=== PATIENT | female | born 1990 | race Caucasian/White ===

== ENCOUNTER 2017-11-17 17:56 | Emergency (ER) | payer BC, MEDICAID, SELFPAY ==
[2017-11-17 18:13] VITALS: BP 140/87; PULSE 102; RESP 20; TEMP 36.6; O2SAT 97; BMI 37.5
--- NOTE | 2017-11-17 18:23 | HMH.EDUTC ---
[facility] [place] Disposition Clinical Impression: Nausea & vomiting Qualifiers: Vomiting type: unspecified Vomiting Intractability: unspecified Qualified Code(s): R11.2 - Nausea with vomiting, unspecified Disposition: Home, Self-Care Condition on Discharge: Good Instructions: DI for Nausea -- Adult, DI for Vomiting -- Adult, DI for Dizziness-Nonvertigo, Vertigo Additional Instructions: Follow up with Family doctor Return if needed Follow up with Dr Clark for evaluation and exam Take previously prescribed Zofran for nausea if needed If you begin to have abdominal pain that worsens or returns go straight to ER Referrals: Hill Negrete MD [Primary Care Provider] - Kenny Clark MD [Staff Physician] - Time of Disposition: 19:22 Medical Decision Making - Medical Records Medical records reviewed: Yes: I reviewed the patient's medical records. Vital Signs: 11/17/17 18:13 Temperature 97.9 F Temperature Source Temporal Artery Scan Pulse Rate [Right Radial] 102 H Respiratory Rate 20 Blood Pressure [Right Arm] 140/87 Blood Pressure Mean [Right Arm] 104 Blood Pressure Source [Right Arm] Automatic Cuff Blood Pressure Position [Right Arm] Sitting 02 Sat by Pulse Oximetry 97 Oxygen Delivery Method Room Air - Lab Data Lab Results 11/17/17 18:11: Urine Color Yellow, Urine Appearance Clear, Urine pH 6.0, Ur Specific [place] 1.015, Urine Protein Negative, Urine Glucose (UA) 500, Urine Ketones Negative, Urine Blood Negative, Urine Nitrate Negative, Urine Bilirubin Negative, Urine Urobilinogen 0.2, Ur Leukocyte Esterase Negative, Influenza Type A Ag Negative, Influenza Type B Ag Negative Orders (Tests/Meds): ED MEDICATIONS Discontinued Medications Generic Name Dose Route Start Last Admin Trade Name Oscarq PRN Reason Stop Dose Admin Ondansetron HCl 4 mg 11/17/17 18:44 11/17/17 18:50 Zofran 4mg/2ml Vial IM 11/17/17 18:45 4 mg ONCE ONE Administration ORDERS Category Date Time Status Urine Culture Stat Micro 11/17/17 18:57 Ordered - Uri Inquiry Pt receiving controlled substance: No Uri was queried for this patient: No - Reevaluation(s) Time: 19:16 (Offered to send patient to ER for further work up and evalulation but patient refused to go state that she is feeling better and wants to go home she will come back to ER if she begins to have pain again. State that medication helped with nausea and she is not feeling dizzy either. Patient and family aware of possible risks advised that she needed to follow up with Dr Clark tomorrow if possible for further evaluation and exam) [facility] [place] HPI - General Stated complaint: Vomiting Mode of Arrival: Ambulatory Source of Information: Patient Limitations: No Limitations Description of Symptoms (Recalled from Triage Doc. by RN): PT C/O VOMITING, DIZZINESS, FALLING, WEAKNESS, STOMACH PAINS, FATIGUE, AND VAGINAL PAINS FOR 2 DAYS. HEENT Symptoms (Recalled from RN notes): Yes (DIZZINESS, WEAKNESS,FALLING) Resp Symptoms (Recalled from RN notes): No Skin Symptoms (Recalled from RN notes): No MS Symptoms (Recalled from RN notes): No Functional Status (Recalled from RN notes): NA - History of Present Illness Provider Complaint: Patient state that she has been having nausea and vomiting since earlier today States that she has also been having eppisodes of dizziness and tripped at home earlier and fell but this is not uncommon for her. State that she has been having some cramping like feeling on and off in her lower abdomen for about 2-3 months state that when it starts feels like it is in her ovaries and then she has discharge at times States that her mother wanted her brought to get her checked out - Related Data Home Medications Medication Instructions Recorded Confirmed ARIPiprazole [Abilifcristina Maintena] 400 mg PO DAILY 11/17/17 11/17/17 Allergies Allergy/AdvReac Type Severity Reaction Status Date / Time No Known Allergies Allergy Verified 11/17/17
--- NOTE | 2017-11-17 18:41 | ED_ITS ---
[facility] [place] Clinical Impression: Nausea & vomiting Qualifiers: Vomiting type: unspecified Vomiting Intractability: unspecified Qualified Code( s): R11.2 - Nausea with vomiting, unspecified Disposition: Home, Self-Care Condition on Discharge: Good Instructions: DI for Nausea -- Adult, DI for Vomiting -- Adult, DI for Dizziness-Nonvertigo, Vertigo Additional Instructions: Follow up with Family doctor Return if needed Follow up with Dr Clark for evaluation and exam Take previously prescribed Zofran for nausea if needed If you begin to have abdominal pain that worsens or returns go straight to ER Referrals: Hill Negrete MD [Primary Care Provider] - Kenny Clark MD [Staff Physician] - Time of Disposition: 19:22 Medical Decision Making - Medical Records Medical records reviewed: Yes: I reviewed the patient's medical records. Vital Signs: 11/17/17 18:13 Temperature 97.9 F Temperature Source Temporal Artery Scan Pulse Rate [Right Radial] 102 H Respiratory Rate 20 Blood Pressure [Right Arm] 140/87 Blood Pressure Mean [Right Arm] 104 Blood Pressure Source [Right Arm] Automatic Cuff Blood Pressure Position [Right Arm] Sitting 02 Sat by Pulse Oximetry 97 Oxygen Delivery Method Room Air - Lab Data Lab Results 11/17/17 18:11: Urine Color Yellow, Urine Appearance Clear, Urine pH 6.0, Ur Specific [place] 1.015, Urine Protein Negative, Urine Glucose (UA) 500, Urine Ketones Negative, Urine Blood Negative, Urine Nitrate Negative, Urine Bilirubin Negative, Urine Urobilinogen 0.2, Ur Leukocyte Esterase Negative, Influenza Type A Ag Negative, Influenza Type B Ag Negative Orders (Tests/Meds): ED MEDICATIONS Discontinued Medications Generic Name Dose Route Start Last Admin Trade Name Oscarq PRN Reason Stop Dose Admin Ondansetron HCl 4 mg 11/17/17 18:44 11/17/17 18:50 Zofran 4mg/2ml Vial IM 11/17/17 18:45 4 mg ONCE ONE Administration ORDERS Category Date Time Status Urine Culture Stat Micro 11/17/17 18:57 Ordered - Uri Inquiry Pt receiving controlled substance: No Uri was queried for this patient: No - Reevaluation(s) Time: 19:16 (Offered to send patient to ER for further work up and evalulation but patient refused to go state that she is feeling better and wants to go home she will come back to ER if she begins to have pain again. State that medication helped with nausea and she is not feeling dizzy either. Patient and family aware of possible risks advised that she needed to follow up with Dr Clark tomorrow if possible for further evaluation and exam) [facility] [place] - General Stated complaint: Vomiting Mode of Arrival: Ambulatory Source of Information: Patient Limitations: No Limitations Description of Symptoms (Recalled from Triage Doc. by RN): PT C/O VOMITING, DIZZINESS, FALLING, WEAKNESS, STOMACH PAINS, FATIGUE, AND VAGINAL PAINS FOR 2 DAYS. HEENT Symptoms (Recalled from RN notes): Yes (DIZZINESS, WEAKNESS,FALLING) Resp Symptoms (Recalled from RN notes): No Skin Symptoms (Recalled from RN notes): No MS Symptoms (Recalled from RN notes): No Functional Status (Recalled from RN notes): NA - History of Present Illness Provider Complaint: Patient state that she has been having nausea and vomiting since earlier today States that she has also been having eppisodes of dizziness and tripped at home [place]
[2017-11-17 18:45] LABS: Apearance,Urine Clear (Clear); Bilirubin,Urine Negative (Negative); Blood, Urine Negative (Negative); Color,Urine Yellow (Yellow); Glucose,Urine (UA) 500 (Negative); Ketones,Urine Negative (Negative); Protein,Urine Negative (Negative); Specific Gravity, Urine 1.015 (1.005-1.030); UTC Influenza A Antigen Negative (Negative); UTC Influenza B Antigen Negative (Negative); UTC Leukocyte Esterase,Urine Negative (Negative); UTC Nitrate,Urine Negative (Negative); Urobilinogen,Urine 0.2 EU/dl (0.2)
== END 2017-11-17 19:30 | disposition home or self-care (01) ==
PROVIDERS: Emergency Provider Nurse Practitioner; Family Provider Internal Medicine Adolescent Medicine; PCP Internal Medicine Adolescent Medicine
DX: R11.2 Nausea with vomiting, unspecified (principal); R42 Dizziness and giddiness; R10.30 Lower abdominal pain, unspecified
CPT/HCPCS: 81003; 87086; 87804; 96372; 99202; J2405

== ENCOUNTER → 2017-12-30 16:01 | Outpatient (CLI) | payer BC, MEDICAID, SELFPAY ==
[2017-12-30 16:05] LABS: Microscopic, Urine URINE MICROSCOPIC (MICROSCOPIC)
--- NOTE | 2017-12-30 16:20 | XR_ITS ---
XR KUB COMPARISON: KUB and upright abdomen 03/04/2017 HISTORY: Abdominal pain, hematuria TECHNIQUE: KUB and upright abdomen FINDINGS There is only minimal gas scattered throughout the colon. There is no significant small bowel gas. There is moderate gas within the stomach. There are no abnormal soft tissue shadows and there are no suspicious calcifications overlying the kidneys or course of the ureters. IMPRESSION: Essentially nondiagnostic abdomen
[2017-12-30 16:34] LABS: Basophils % 0.2 % (0.1-2.0); Eosinophils # 0.1 K/mm3 (0.0-0.4); Eosinophils % 0.4 % (0.1-12.0); Hematocrit 44.6 % (37.0-47.0); Hemoglobin 14.4 g/dL (12.2-16.2); Lymphocytes # 0.9 K/mm3 (0.7-4.5); Lymphocytes % 7.1 K/mm3 (10-50); Mean Corpuscular HGB Conc 32.2 g/dL (31.8-35.4); Mean Corpuscular Hemoglobin 29.8 pg (27.0-31.2); Mean Corpuscular Volume 92.3 fl (81-99); Mean Platelet Volume 8.6 fl (7.4-10.4); Monocytes # 0.6 K/mm3 (0.1-1.0); Monocytes % 4.3 % (1.7-9.3); Neutrophils # 11.8 K/mm3 (1.8-7.8); Neutrophils % 88.1 % (37.0-80.0); Platelet Count 312 K/mm3 (142-424); Red Blood Count 4.83 M/mm3 (4.20-5.40); Red Cell Distribution Width 12.6 % (11.5-17.5); White Blood Count 13.4 K/mm3 (4.8-10.8)
[2017-12-30 16:41] LABS: MANUAL DIFFERENTIAL MANUAL DIFFERENTIAL (MANUAL DIFF)
[2017-12-30 16:55] LABS: Hemoglobin A1C 9.2 % (0.0-7.0)
[2017-12-30 17:17] LABS: Alanine Aminotransferase 53 U/L (12-78); Albumin Level 3.7 gm/dL (3.4-5.0); Albumin/Globulin Ratio 0.8 (1.1-1.8); Alkaline Phosphatase 113 U/L (46-116); Anion Gap 13.7 mEq/L (5-15); Aspartate Amino Transferase 34 U/L (15-37); Bilirubin,Total 0.6 mg/dL (0.2-1.0); Blood Urea Nitrogen 11 mg/dL (7-18); Calcium 8.8 mg/dL (8.5-10.1); Carbon Dioxide 26 mmol/L (21.0-32.0); Chloride 101 mmol/L (98-107); Creatinine,Serum 0.79 mg/dL (0.55-1.02); Estimated Glomerular Filt Rate 89 ml/min (>60); GFR (African American) 107 ML/MIN (>60); Globulin 4.7 gm/dl (1.3-3.2); Glucose 254 mg/dL (74-106); Potassium 3.7 mmoL/L (3.5-5.1); Sodium 137 mmol/L (136-145); Total Protein,Serum 8.4 gm/dL (6.4-8.2)
[2017-12-30 18:05] LABS: Urine Pregnancy, HCG Qual. Negative (Negative)
[2017-12-30 18:54] LABS: Acetone, Serum (Rapid) None Detected (None Detect)
[2017-12-30 19:28] LABS: Lymphocytes % 9 % (10-50); Neutrophils % 86 % (42-76); Platelet Estimate Normal; RBC Morphology Normal; Total Cells Counted 100
[2017-12-30 19:48] LABS: Amorphous Sediment,Urine 1+ /lpf; Bacteria,Urine 3+ /lpf; Mucus,Urine 1+ /lpf
[2017-12-30 20:03] LABS: Appearance,Urine CLOUDY (Clear); Bilirubin,Urine Negative (Negative); Blood, Urine Negative (Negative); Color,Urine YELLOW (Yellow); Glucose,Urine (UA) 1+ (Negative); Ketones,Urine Negative (Negative); Leukocyte Esterase,Urine Negative (Negative); Nitrate,Urine Negative (Negative); PH,Urine 5.5 (5.0-8.5); Protein,Urine TRACE (Negative); Specific Gravity, Urine >= 1.030 (1.005-1.030); Urobilinogen,Urine 0.2 EU/dl (0.2)
== END ==
PROVIDERS: PCP Nurse Practitioner Family; Visit Provider Nurse Practitioner Family
DX: R10.84 Generalized abdominal pain (principal); R73.9 Hyperglycemia, unspecified; R11.2 Nausea with vomiting, unspecified; R31.9 Hematuria, unspecified; N92.6 Irregular menstruation, unspecified
CPT/HCPCS: 36415; 74018; 80053; 81001; 81025; 82009; 83036; 85007; 85025; 87086

== ENCOUNTER → 2018-02-02 12:31 | Outpatient (CLI) | payer BC, MEDICAID, SELFPAY ==
[2018-02-02 14:37] LABS: Free Thyroxine Index 3.2 ug/dL (5.93-13.13); Glucose 1 Hour 381 mg/dL (74-106); T4 (Thyroxine) 8.9 ug/dl (4.7-13.3); Thyroid Stimulating Hormone 1.69 uIU/ml (0.358-3.740); Triiodothryronine (T3) Uptake 36 % (31-39)
[2018-02-03 11:04] LABS: FSH 5.9 mIU/mL (.); LH 11.2 mIU/mL (.)
== END ==
PROVIDERS: Family Provider Internal Medicine Adolescent Medicine; PCP Internal Medicine Adolescent Medicine; Visit Provider Nurse Practitioner Obstetrics & Gynecology
DX: Z87.42 Personal history of other diseases of the female genital tract (principal)
CPT/HCPCS: 36415; 83001; 83002; 84436; 84443; 84479

== ENCOUNTER → 2018-02-13 15:34 | Outpatient (CLI) | payer BC, MEDICAID, SELFPAY ==
--- NOTE | 2018-02-13 15:39 | US_ITS ---
US transvaginal Ordering Physician: Kenny Clark MD Patient Age: 27 years: Female HISTORY: ITS.REASON: look at ovaries/pain abdominal pain pelvic pain discharge irregular periods TECHNIQUE: Transvaginal pelvic ultrasound COMPARISON :CT abdomen pelvis October 2014 FINDINGS Uterus. Normal size measuring 6.6 seem in length is 2.5 cm palpable . Endometrial stripe relatively thickening measuring ~1 cm in thickness superior No fibroids. No discrete mass. Right ovary 3.3 T 2.1 x 1.9 cm 1.75 x 1.5 cm cyst is seen at posterior aspect right ovary. Minimal free fluid is seen about the right ovary conceivably reflecting leaking from this cyst. Left ovary 2.8 x 1.9 x 1.7 cm.. Tiny follicles about margin left ovary IMPRESSION: Generous endometrial stripe measuring 1 cm AP. Uterus appears normal in size no fibroids evident. Right ovary contains a 1.75 cm cyst . minimal trace fluid surrounding this right ovary and cyst
== END ==
PROVIDERS: Family Provider Internal Medicine Adolescent Medicine; PCP Internal Medicine Adolescent Medicine; Visit Provider Nurse Practitioner Obstetrics & Gynecology
DX: E28.2 Polycystic ovarian syndrome (principal)
CPT/HCPCS: 76830

== ENCOUNTER → 2018-08-16 11:25 | Outpatient (CLI) | payer BC, MEDICAID, SELFPAY ==
[2018-08-16 12:29] LABS: Basophils # 0.1 K/mm3 (0-0.2); Basophils % 0.5 % (0.1-2.0); Eosinophils # 0.1 K/mm3 (0.0-0.4); Eosinophils % 0.9 % (0.1-12.0); Hematocrit 40.8 % (37.0-47.0); Hemoglobin 13.6 g/dL (12.2-16.2); Lymphocytes # 1.9 K/mm3 (0.7-4.5); Lymphocytes % 19.5 K/mm3 (10-50); Mean Corpuscular HGB Conc 33.2 g/dL (31.8-35.4); Mean Corpuscular Hemoglobin 29.7 pg (27.0-31.2); Mean Corpuscular Volume 89.5 fl (81-99); Mean Platelet Volume 8.1 fl (7.4-10.4); Monocytes # 0.3 K/mm3 (0.1-1.0); Monocytes % 3.3 % (1.7-9.3); Neutrophils # 7.2 K/mm3 (1.8-7.8); Neutrophils % 75.8 % (37.0-80.0); Platelet Count 319 K/mm3 (142-424); Red Blood Count 4.56 M/mm3 (4.20-5.40); Red Cell Distribution Width 12.9 % (11.5-17.5); White Blood Count 9.5 K/mm3 (4.8-10.8)
[2018-08-16 13:23] LABS: Hemoglobin A1C 10.7 % (0.0-7.0)
[2018-08-16 13:29] LABS: Potassium 4.2 mmoL/L (3.5-5.1); Sodium 133 mmol/L (136-145)
[2018-08-16 14:11] LABS: Alanine Aminotransferase 45 U/L (12-78); Albumin Level 3.6 gm/dL (3.4-5.0); Albumin/Globulin Ratio 0.9 (1.1-1.8); Alkaline Phosphatase 119 U/L (46-116); Anion Gap 19.2 mEq/L (5-15); Aspartate Amino Transferase 36 U/L (15-37); Bilirubin,Total 0.3 mg/dL (0.2-1.0); Blood Urea Nitrogen 8 mg/dL (7-18); Calcium 9.4 mg/dL (8.5-10.1); Carbon Dioxide 19 mmol/L (21.0-32.0); Chloride 99 mmol/L (98-107); Chol/HDL Ratio 5.6 (1-3.5); Cholesterol 141 mg/dL (140-200); Creatinine,Serum 0.82 mg/dL (0.55-1.02); Estimated Glomerular Filt Rate 85 ml/min (>60); GFR (African American) 103 ML/MIN (>60); Globulin 4.2 gm/dl (1.3-3.2); HDL Cholesterol 25 mg/dL (29-89); LDL Cholesterol 76 mg/dL (0-130); Thyroid Stimulating Hormone 1.02 uIU/ml (0.358-3.740); Total Protein,Serum 7.8 gm/dL (6.4-8.2); Triglycerides 198 mg/dL (30-200); VLDL Cholesterol 40 mg/dL (0-40)
[2018-08-16 14:30] LABS: Glucose 408 mg/dL (74-106)
== END ==
PROVIDERS: PCP Internal Medicine Adolescent Medicine; Visit Provider Psychiatry & Neurology Psychiatry
DX: F25.0 Schizoaffective disorder, bipolar type (principal)
CPT/HCPCS: 36415; 80053; 80061; 83036; 84443; 85025

== ENCOUNTER → 2018-11-14 11:03 | Outpatient (CLI) | payer MEDICAID, SELFPAY | PROVIDERS: PCP Internal Medicine Adolescent Medicine; Visit Provider Internal Medicine Adolescent Medicine | DX: F25.1 Schizoaffective disorder, depressive type (principal) | CPT/HCPCS: 36415; 80164 ==

== ENCOUNTER → 2019-02-13 11:09 | Outpatient (CLI) | payer MEDICAID, SELFPAY ==
[2019-02-13 11:13] LABS: Microscopic, Urine URINE MICROSCOPIC (MICROSCOPIC)
[2019-02-13 14:24] LABS: Basophils % 0.4 % (0.1-2.0); Eosinophils # 0.2 K/mm3 (0.0-0.4); Eosinophils % 1.9 % (0.1-12.0); Hematocrit 39.7 % (37.0-47.0); Hemoglobin 13.3 g/dL (12.2-16.2); Lymphocytes # 2.6 K/mm3 (0.7-4.5); Lymphocytes % 26.4 % (10-50); Mean Corpuscular HGB Conc 33.5 g/dL (31.8-35.4); Mean Corpuscular Hemoglobin 29.5 pg (27.0-31.2); Mean Corpuscular Volume 88.1 fl (81-99); Mean Platelet Volume 8.8 fl (7.4-10.4); Monocytes # 0.5 K/mm3 (0.1-1.0); Monocytes % 5.3 % (1.7-9.3); Neutrophils # 6.4 K/mm3 (1.8-7.8); Platelet Count 294 K/mm3 (142-424); Red Blood Count 4.51 M/mm3 (4.20-5.40); Red Cell Distribution Width 12.8 % (11.5-17.5); White Blood Count 9.7 K/mm3 (4.8-10.8)
[2019-02-13 14:46] LABS: Urine Pregnancy, HCG Qual. Negative (Negative)
[2019-02-13 16:11] LABS: Alanine Aminotransferase 19 U/L (12-78); Albumin Level 3.4 gm/dL (3.4-5.0); Albumin/Globulin Ratio 0.8 (1.1-1.8); Alkaline Phosphatase 94 U/L (46-116); Amylase 37 U/L (25-115); Aspartate Amino Transferase 7 U/L (15-37); Bilirubin,Total 0.3 mg/dL (0.2-1.0); Blood Urea Nitrogen 9 mg/dL (7-18); Calcium 9.2 mg/dL (8.5-10.1); Carbon Dioxide 20 mmol/L (21.0-32.0); Chloride 101 mmol/L (98-107); Creatinine,Serum 0.68 mg/dL (0.55-1.02); Estimated Glomerular Filt Rate 105 ml/min (>60); GFR (African American) 127 ML/MIN (>60); Globulin 4.1 gm/dl (1.3-3.2); Glucose 306 mg/dL (74-106); Lipase 205 u/L (73-393); Sodium 136 mmol/L (136-145); Total Protein,Serum 7.5 gm/dL (6.4-8.2)
[2019-02-13 16:34] LABS: Appearance,Urine CLEAR (Clear); Bilirubin,Urine Negative (Negative); Blood, Urine 2+ (Negative); Color,Urine YELLOW (Yellow); Glucose,Urine (UA) 3+ (Negative); Ketones,Urine Negative (Negative); Leukocyte Esterase,Urine Negative (Negative); Nitrate,Urine Negative (Negative); Protein,Urine Negative (Negative); Specific Gravity, Urine 1.015 (1.005-1.030); Urobilinogen,Urine 0.2 EU/dl (0.2)
[2019-02-13 16:42] LABS: Bacteria,Urine Trace /lpf; RBC,Urine Occasional #/hpf (0-3); WBC,Urine Occasional #/hpf (0-3)
== END ==
PROVIDERS: PCP Internal Medicine Adolescent Medicine; Visit Provider Internal Medicine Adolescent Medicine
DX: N76.0 Acute vaginitis (principal); N91.2 Amenorrhea, unspecified
CPT/HCPCS: 36415; 80053; 81001; 81025; 82150; 83690; 85025

== ENCOUNTER → 2019-03-09 15:59 | Outpatient (CLI) | payer MEDICAID, SELFPAY ==
--- NOTE | 2019-03-09 16:09 | XR_ITS ---
XR KUB Ordering Physician: Avelino Pitts MD Patient Age: 28 years: Female HISTORY: ITS.REASON: VOMITING,ABD PAIN TECHNIQUE: Supine abdomen radiograph = KUB COMPARISON :Previous KUB 3 FINDINGS Nonspecific bowel gas pattern . No bowel dilatation or obstruction. Minimal gas is seen in the large and small bowel. Minimal stool throughout the colon. Minimal gas most evident at the stomach. Clips right upper quadrant from cholecystectomy.. Spleen appears normal in size Liver upper normal lengthwarrants correlation clinically AP view kidney shows no definitive calculi. No suspect calculi seen along the course of either ureter. The pelvic basin relatively unremarkable. . Bones well mineralized. SI joints unremarkable There is partial embolization of S1 to the right IMPRESSION: Normal bowel gas pattern. Unremarkable KUB. Cholecystectomy Liver appears upper normal size. No urinary tract calculi.
[2019-03-09 16:17] LABS: Basophils # 0.1 K/mm3 (0-0.2); Basophils % 0.5 % (0.1-2.0); Eosinophils # 0.2 K/mm3 (0.0-0.4); Eosinophils % 2.3 % (0.1-12.0); Hematocrit 38.7 % (37.0-47.0); Hemoglobin 13.5 g/dL (12.2-16.2); Lymphocytes # 2.7 K/mm3 (0.7-4.5); Lymphocytes % 27.7 % (10-50); Mean Corpuscular HGB Conc 34.9 g/dL (31.8-35.4); Mean Corpuscular Hemoglobin 29.7 pg (27.0-31.2); Mean Platelet Volume 7.9 fl (7.4-10.4); Monocytes # 0.5 K/mm3 (0.1-1.0); Monocytes % 4.9 % (1.7-9.3); Neutrophils # 6.4 K/mm3 (1.8-7.8); Neutrophils % 64.5 % (37.0-80.0); Platelet Count 322 K/mm3 (142-424); Red Blood Count 4.55 M/mm3 (4.20-5.40); Red Cell Distribution Width 12.7 % (11.5-17.5); White Blood Count 9.9 K/mm3 (4.8-10.8)
[2019-03-09 16:42] LABS: Alanine Aminotransferase 48 U/L (12-78); Albumin Level 3.4 gm/dL (3.4-5.0); Albumin/Globulin Ratio 0.8 (1.1-1.8); Alkaline Phosphatase 107 U/L (46-116); Anion Gap 15.9 mEq/L (5-15); Aspartate Amino Transferase 44 U/L (15-37); Bilirubin,Total 0.3 mg/dL (0.2-1.0); Blood Urea Nitrogen 5 mg/dL (7-18); Calcium 9.1 mg/dL (8.5-10.1); Carbon Dioxide 23 mmol/L (21.0-32.0); Chloride 100 mmol/L (98-107); Creatinine,Serum 0.73 mg/dL (0.55-1.02); Estimated Glomerular Filt Rate 96 ml/min (>60); GFR (African American) 117 ML/MIN (>60); Globulin 4.4 gm/dl (1.3-3.2); Glucose 206 mg/dL (74-106); Lipase 163 u/L (73-393); Potassium 3.9 mmoL/L (3.5-5.1); Sodium 135 mmol/L (136-145); Thyroid Stimulating Hormone 1.26 uIU/ml (0.358-3.740); Total Protein,Serum 7.8 gm/dL (6.4-8.2)
[2019-03-09 20:13] LABS: HCG Qualitative, Serum Negative (Negative)
== END ==
PROVIDERS: PCP Internal Medicine Adolescent Medicine; Visit Provider Internal Medicine Adolescent Medicine
DX: E03.9 Hypothyroidism, unspecified (principal); E11.9 Type 2 diabetes mellitus without complications; R10.84 Generalized abdominal pain; R11.10 Vomiting, unspecified
CPT/HCPCS: 36415; 74018; 80053; 83036; 83690; 84443; 84703; 85025

== ENCOUNTER → 2019-03-14 09:12 | Outpatient (CLI) | payer MEDICAID, SELFPAY ==
--- NOTE | 2019-03-14 09:15 | CT_ITS ---
CT abdomen pelvis w con CLINICAL INDICATION: ITS.REASON: ABD PAIN, VOMITING ORDERING PHYSICIAN: Avelino Pitts MD PATIENT AGE: 28 years COMPARISON: 11/16/2014 TECHNIQUE: Axial images obtained without contrast with sagittal and coronal reformats. All CT scans at the facility use one or more dose reduction, viz: automated exposure control, ma/kV adjustment per patient size (including targeted exams where dose is matched to indication, i.e. head), or iterative reconstruction technique. PROCEDURE: Oral Contrast: None IV Contrast: 75 mL of Optiray 350. FINDINGS: The lung bases are clear. Mild diffuse fatty liver infiltration. There is an area of decreased attenuation in the left hepatic lobe at the falciform ligament region measuring 2 cm and may be related to an area of focal fatty infiltration. Postcholecystectomy change. Borderline splenomegaly. The pancreas, adrenal glands, and kidneys have an unremarkable appearance. No renal or ureteral calculi. No hydronephrosis. Scattered small nodes are present in the mesentery is nonspecific. Unremarkable appendix. No intestinal obstruction or free air. There was distention of the urinary bladder. The patient went to the restroom and additional images were obtained. No pelvic mass abnormal fluid collection or focal inflammatory change. No acute bony anomalies. IMPRESSION: 1. No acute abdominal or pelvic findings. 2. Fatty liver with borderline splenomegaly
== END ==
PROVIDERS: PCP Internal Medicine Adolescent Medicine; Visit Provider Internal Medicine Adolescent Medicine
DX: R10.84 Generalized abdominal pain (principal); R11.10 Vomiting, unspecified
CPT/HCPCS: 74177; Q9967

== ENCOUNTER 2019-06-11 15:31 | Observation (INO) ==
[2019-06-11 16:58] LABS: Basophils # 0.1 K/mm3 (0-0.2); Basophils % 0.3 % (0.1-2.0); Eosinophils # 0.4 K/mm3 (0.0-0.4); Eosinophils % 2.3 % (0.1-12.0); Hematocrit 41.5 % (37.0-47.0); Lymphocytes # 4.1 K/mm3 (0.7-4.5); Lymphocytes % 24.5 % (10-50); Mean Corpuscular HGB Conc 33.9 g/dL (31.8-35.4); Mean Corpuscular Volume 89.8 fl (81-99); Mean Platelet Volume 7.7 fl (7.4-10.4); Monocytes # 0.7 K/mm3 (0.1-1.0); Monocytes % 4.4 % (1.7-9.3); Neutrophils # 11.4 K/mm3 (1.8-7.8); Neutrophils % 68.5 % (37.0-80.0); Platelet Count 362 K/mm3 (142-424); Red Blood Count 4.62 M/mm3 (4.20-5.40); Red Cell Distribution Width 12.6 % (11.5-17.5); White Blood Count 16.6 K/mm3 (4.8-10.8)
[2019-06-11 17:08] LABS: Albumin Level 3.5 gm/dL (3.4-5.0); Albumin/Globulin Ratio 0.8 (1.1-1.8); Anion Gap 14.5 mEq/L (5-15); Bilirubin,Total 0.2 mg/dL (0.2-1.0); Calcium 9.5 mg/dL (8.5-10.1); Globulin 4.4 gm/dl (1.3-3.2); Phosphorous 3.9 mg/dL (2.4-4.9); Total Protein,Serum 7.9 gm/dL (6.4-8.2)
--- NOTE | 2019-06-11 18:22 | History & Physical Report ---
*Admission Date: 06/11/19 *Chief complaint: emesis, hyperglycemia *History of present illness: 28-year-old female with history of uncontrolled diabetes, schizoaffective disorder, hypothyroidism, recurrent nausea and vomiting, and intellectual disability. She presented to the office today with acute complaint of worsening sinus congestion, scratchy throat all beginning last . Over the weekend however she developed acute worsening of nausea, vomiting, inability to keep food down. Had only had 2 very small voids one each day for the past 2 days. Has been feeling weak and dizzy over the course the weekend. Blood sugars have been elevated above 300 and not registering on her home glucose monitor. She denies any diarrhea or constipation. No blood in her emesis. Has significant abdominal pain when she vomits, feels like a stabbing pain in her stomach. Proceeded to leave the exam room and go vomit during visit in clinic. Patient was directly admitted for further management and work-up of her inability to keep food down, dehydration, and hyperglycemia. [facility] History I have reviewed the patient's past medical history: Yes Medical History: Reports:: Cancer Denies:: Diabetes Mellitus Type 2, MRSA *Have you ever received a pneumonia vaccine?: No *Have you received a flu vaccine this season?: Yes Laterality Cases: Bilateral: Tonsillectomy Other Surgeries: Yes: Cholecystectomy, Sinus Surgery Amputation: No Fractures: No - *Social History Educational Level: Attended High School Smoking Status: Former smoker Tobacco Type: cigarettes # Packs/Day (cigarettes): 0 Smoking End Date: 2017 Alcohol Intake: former Alcohol Intake Frequency:: holidays/special occasions only *Occupational Status:: disabled Housing: house Household Members: family *Travel in the last 8 weeks: None Family Hx:: Cancer, Coronary Artery Disease, Diabetes, Heart Attack, Hyperlipidemia, Hypertension, Kidney Disease, Stroke, Thyroid Disorder Review of Systems - Review of Systems Review of systems:: pertinent systems reviewed and negative unless documented below Meds Home Medications Medication Instructions Recorded Confirmed Type Ondansetron [Zofran 4mg ODT] 4 mg PO Q8H PRN #20 tab.rapdis 01/20/18 06/11/19 Rx aripiprazole ER 400 mg 400 mg IM MONTHLY 30 Days #1 02/02/18 06/11/19 History intramuscular suspension,extended release divalproex 125 mg capsule,delayed 500 mg PO BID 30 Days #240 cap 12/07/18 06/11/19 History release sprinkle escitalopram 10 mg tablet 20 mg PO DAILY 30 Days #30 tab 12/07/18 06/11/19 History quetiapine 25 mg tablet 25 mg PO TIDP PRN 30 Days #90 tab 12/07/18 06/11/19 History Insulin Degludec [Tresiba 64 units SQ HS 06/11/19 06/11/19 History Flextouch U-100] Allergies Allergy/AdvReac Type Severity Reaction Status Date / Time No Known Allergies Allergy Verified 06/11/19 16:24 Exam Vital signs and Labs for Last 24 Hours: Temp Pulse Resp BP Pulse Ox 97.7 F 111 H 18 140/81 99 06/11/19 16:26 06/11/19 16:26 06/11/19 16:26 06/11/19 16:26 06/11/19 16:26 Laboratory Results - last 24 hr 06/11/19 16:40: WBC 16.6 H, RBC 4.62, Hgb 14.0, Hct 41.5, MCV 89.8, MCH 30.4, MCHC 33.9, RDW 12.6, Plt Count 362, MPV 7.7, Neut % (Auto) 68.5, Lymph % (Auto) 24.5, [place] % (Auto) 4.4, Eos % (Auto) 2.3, Baso % (Auto) 0.3, Neut # (Auto) 11.4 H, Lymph # (Auto) 4.1, [place] # (Auto) 0.7, Eos # (Auto) 0.4, Baso # (Auto) 0.1 06/11/19 16:40: Sodium 135 L, Potassium 3.5, Chloride 100, Carbon Dioxide 24, Anion Gap 14.5, BUN 7, Creatinine 0.84, Estimated Creat Clear 167, Estimated GFR 82, Est GFR ( Amer) 99, Glucose 341 H, Calcium 9.5, Phosphorus 3.9, Magnesium 1.3 L, Total Bilirubin 0.2, AST 18, ALT 29, Alkaline Phosphatase 106, Total Protein 7.9, Albumin 3.5, Globulin 4.4 H, Albumin/Globulin Ratio 0.8 L 06/11/19 16:40: Serum HCG, Qual Negative 06/11/19 16:57: POC Glucose 304 H* I & O for Last 24 hours: Intake & Output 06/08/19 06/09/19 06/10/19 06/11/19 23:59 23:59 23:59 23:59 Weight 104.496 kg - Constitutional mild distress, obese - *Routine HEENT Exam Head: Present: normocephalic, atraumatic Eye: Present: EOMI, PERRL ENT: Present: mucous membranes moist - *Routine Neck Exam Present: supple, full ROM. Absent: JVD Comments: Acanthosis - *Routine Respiratory Exam Present: CTA bilaterally - *Routine Cardiovascular Exam Present: Normal S1, Normal S2, tachycardia. Absent: murmur - *Routine Abdominal Exam Present: soft, normoactive bowel sounds, tenderness (Diffuse nonfocal, back pain bilaterally that obscures ability to assess CVA tenderness) - *Routine Rectal Exam Patient deferred: visual exam - *Routine Exam Patient deferred: external exam - *Routine Extremities Exam Absent: cyanosis, clubbing, edema - *Routine Skin Exam Present: intact. Absent: cyanosis, erythema, lesions - *Routine Neurological Exam Present: alert, oriented X3. Absent: altered mental status Assessment and Plan (1) Hyperglycemia Current visit: Yes Status: Acute Category: Medical Code(s): R73.9 - Hyperglycemia, unspecified (2) Nausea & vomiting Current visit: No Status: Acute Qualifiers: Vomiting type: unspecified Vomiting Intractability: unspecified Qualified Code(s): R11.2 - Nausea with vomiting, unspecified Category: Medical Code(s): R11.2 - Nausea with vomiting, unspecified Zofran as needed, will p.o. challenge with liquid diet. Advance in the morning if tolerates liquid diet this evening (3) SIRS (systemic inflammatory response syndrome) Current visit: Yes Status: Acute Category: Medical Code(s): R65.10 - Systemic inflammatory response syndrome (SIRS) of non-infectious origin without acute organ dysfunction Tachycardia on admission with white cell count. Blood cultures and urine culture pending. No clear source at this time. Given single dose of IV ceftriaxone for infectious coverage empirically (4) Leukocytosis Current visit: Yes Status: Acute Category: Medical Code(s): D72.829 - Elevated white blood cell count, unspecified Unclear etiology, may be infection versus demargination. 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 Fingerstick AC and at bedtime. Plan to establish mealtime insulin regimen for discharge home. Patient's inability to self administer insulin complicates her care. Family amenable at this time to initiating mealtime regimen to achieve better control, last A1c of 10 and february (6) Schizoaffective disorder Current visit: Yes Status: Acute Qualifiers: Schizoaffective disorder type: bipolar Qualified Code(s): F25.0 - Schizoaffective disorder, bipolar type Category: Medical Code(s): F25.9 - Schizoaffective disorder, unspecified - Assessment and plan all Dx Assessment and Plan for all problems:: Plan to monitor overnight. Will formulate plan for outpatient insulin regimen with resumption of basal at home and initiation of mealtime scheduled. Additionally will make adjustments to psych meds to see if we can adjust emesis as well as patient's anxiety. If tolerates good p.o. intake, anticipate discharge in the morning
[2019-06-11 20:55] LABS: Eosinophils % 1 % (0-3); Lymphocytes % 25 % (10-50); Monocytes % 3 % (2-9); Neutrophils % 71 % (42-76); RBC Morphology Normal; Total Cells Counted 100
[2019-06-11 22:54] LABS: Microscopic, Urine URINE MICROSCOPIC (MICROSCOPIC)
[2019-06-11 22:59] LABS: Appearance,Urine CLEAR (Clear); Bilirubin,Urine Negative (Negative); Blood, Urine 1+ (Negative); Color,Urine YELLOW (Yellow); Glucose,Urine (UA) 3+ (Negative); Ketones,Urine Negative (Negative); Leukocyte Esterase,Urine Negative (Negative); Protein,Urine Negative (Negative); Specific Gravity, Urine <= 1.005 (1.005-1.030); Urobilinogen,Urine 0.2 EU/dl (0.2)
[2019-06-11 23:15] LABS: Bacteria,Urine 1+ /lpf
[2019-06-12 06:11] LABS: Basophils # 0.1 K/mm3 (0-0.2); Basophils % 0.4 % (0.1-2.0); Eosinophils # 0.3 K/mm3 (0.0-0.4); Eosinophils % 2.5 % (0.1-12.0); Hematocrit 38.1 % (37.0-47.0); Lymphocytes % 25.7 % (10-50); Mean Corpuscular HGB Conc 32.9 g/dL (31.8-35.4); Mean Corpuscular Volume 89.1 fl (81-99); Mean Platelet Volume 7.6 fl (7.4-10.4); Monocytes # 0.7 K/mm3 (0.1-1.0); Neutrophils # 7.6 K/mm3 (1.8-7.8); Neutrophils % 65.4 % (37.0-80.0); Platelet Count 308 K/mm3 (142-424); Red Blood Count 4.28 M/mm3 (4.20-5.40); Red Cell Distribution Width 12.6 % (11.5-17.5); White Blood Count 11.6 K/mm3 (4.8-10.8)
[2019-06-12 06:16] LABS: Anion Gap 9.7 mEq/L (5-15); Calcium 8.8 mg/dL (8.5-10.1)
[2019-06-12 07:05] LABS: Hemoglobin 12.6 g/dL (12.2-16.2)
--- NOTE | 2019-06-12 07:26 | Discharge Summary ---
General - General Admission date:: 06/11/19 Discharge date: 06/12/19 HPI HPI: 28-year-old female with history of uncontrolled diabetes, schizoaffective disorder, hypothyroidism, recurrent nausea and vomiting, and intellectual disability. She presented to the office today with acute complaint of worsening sinus congestion, scratchy throat all beginning last . Over the weekend however she developed acute worsening of nausea, vomiting, inability to keep food down. Had only had 2 very small voids one each day for the past 2 days. Has been feeling weak and dizzy over the course the weekend. Blood sugars have been elevated above 300 and not registering on her home glucose monitor. She denies any diarrhea or constipation. No blood in her emesis. Has significant abdominal pain when she vomits, feels like a stabbing pain in her stomach. Proceeded to leave the exam room and go vomit during visit in clinic. Patient was directly admitted for further management and work-up of her inability to keep food down, dehydration, and hyperglycemia. Hospital Course Hospital Course: Patient was admitted for vomiting, dehydration, Sirs. Tolerated p.o. intake well with improved urine output. Minimal emesis during hospitalization, significant improvement in nausea. Overall did well. Remained hemodynamically stable. Without chest pain, shortness of breath, fever. Plan for initiation of short acting insulin to gain better control of her diabetes. Initiate per medication rec. Additionally made adjustments to her psychiatric medications with cessation of her Lexapro. Scheduled her Seroquel twice daily. Plan for close outpatient follow-up to assess tolerance and improved management of chronic conditions. Counseled to stay well-hydrated, and push p.o. fluids. Will have patient follow-up with GI for recurrent intractable nausea and further work-up. Medically stable for discharge home Objective Vital signs: Temp Pulse Resp BP Pulse Ox 98.4 F 67 17 96/50 L 98 06/12/19 04:00 06/12/19 04:00 06/12/19 04:00 06/12/19 04:00 06/12/19 04:00 Narrative: - Constitutional: No acute distress, obese, stable on RA - *Routine HEENT Exam Head: Present: normocephalic, atraumatic Eye: Present: EOMI, PERRL ENT: Present: mucous membranes moist - *Routine Neck Exam Present: supple, full ROM, acanthosis nigricans. Absent: JVD - *Routine Respiratory Exam Present: CTA bilaterally - *Routine Cardiovascular Exam Present: Normal S1, Normal S2, tachycardia. Absent: murmur - *Routine Abdominal Exam Present: soft, normoactive bowel sounds, tenderness (Diffuse nonfocal, back pain bilaterally that obscures ability to assess CVA tenderness) - *Routine Extremities Exam Absent: cyanosis, clubbing, edema - *Routine Skin Exam Present: intact. Absent: cyanosis, erythema, lesions - *Routine Neurological Exam Present: alert, oriented X3. Absent: altered mental status Results Labs on day of discharge: Labs from last 24 hours 06/12/19 06/12/19 06/12/19 06:19 05:30 05:30 WBC RBC Hgb Hct MCV MCH MCHC RDW Plt Count MPV Neut % (Auto) Lymph % (Auto) Long % (Auto) Eos % (Auto) Baso % (Auto) Neut # (Auto) Lymph # (Auto) Long # (Auto) Eos # (Auto) Baso # (Auto) Total Counted Neutrophils % (Manual) Lymphocytes % (Manual) Monocytes % (Manual) Eosinophils % (Manual) Platelet Estimate RBC Morphology Sodium 137 Potassium 3.7 Chloride 102 Carbon Dioxide 29 D Anion Gap 9.7 BUN 3 L D Creatinine 0.63 D Estimated Creat Clear 227 Estimated GFR 114 Est GFR ( Amer) 138 D Glucose 171 H D POC Glucose 157 H Hemoglobin A1c 10.5 H Lactate Calcium 8.8 Phosphorus Magnesium 1.7 D Total Bilirubin AST ALT Alkaline Phosphatase Total Protein Albumin Globulin Albumin/Globulin Ratio Serum HCG, Qual Urine Color Urine Appearance Urine pH Ur Specific [place] Urine Protein Urine Glucose (UA) Urine Ketones Urine Blood Urine Nitrate Urine Bilirubin Urine Urobilinogen Ur Leukocyte Esterase Urine RBC Urine WBC Urine Bacteria 06/12/19 06/11/19 06/11/19 05:30 22:25 21:06 WBC 11.6 H D RBC 4.28 Hgb 12.6 Hct 38.1 MCV 89.1 MCH 29.3 MCHC 32.9 RDW 12.6 Plt Count 308 MPV 7.6 Neut % (Auto) 65.4 Lymph % (Auto) 25.7 Long % (Auto) 6.0 Eos % (Auto) 2.5 Baso % (Auto) 0.4 Neut # (Auto) 7.6 Lymph # (Auto) 3.0 Long # (Auto) 0.7 Eos # (Auto) 0.3 Baso # (Auto) 0.1 Total Counted Neutrophils % (Manual) Lymphocytes % (Manual) Monocytes % (Manual) Eosinophils % (Manual) Platelet Estimate RBC Morphology Sodium Potassium Chloride Carbon Dioxide Anion Gap BUN Creatinine Estimated Creat Clear Estimated GFR Est GFR ( Amer) Glucose POC Glucose 248 H Hemoglobin A1c Lactate Calcium Phosphorus Magnesium Total Bilirubin AST ALT Alkaline Phosphatase Total Protein Albumin Globulin Albumin/Globulin Ratio Serum HCG, Qual Urine Color Yellow Urine Appearance Clear Urine pH 6.0 Ur Specific [place] <= 1.005 Urine Protein Negative Urine Glucose (UA) 3+ Urine Ketones Negative Urine Blood 1+ Urine Nitrate Negative Urine Bilirubin Negative Urine Urobilinogen 0.2 Ur Leukocyte Esterase Negative Urine RBC 3-5 Urine WBC 3-5 Urine Bacteria 1+ 06/11/19 06/11/19 06/11/19 16:57 16:40 16:40 WBC RBC Hgb Hct MCV MCH MCHC RDW Plt Count MPV Neut % (Auto) Lymph % (Auto) Long % (Auto) Eos % (Auto) Baso % (Auto) Neut # (Auto) Lymph # (Auto) Long # (Auto) Eos # (Auto) Baso # (Auto) Total Counted Neutrophils % (Manual) Lymphocytes % (Manual) Monocytes % (Manual) Eosinophils % (Manual) Platelet Estimate RBC Morphology Sodium Potassium Chloride Carbon Dioxide Anion Gap BUN Creatinine Estimated Creat Clear Estimated GFR Est GFR ( Amer) Glucose POC Glucose 304 H* Hemoglobin A1c Lactate 1.8 Calcium Phosphorus Magnesium Total Bilirubin AST ALT Alkaline Phosphatase Total Protein Albumin Globulin Albumin/Globulin Ratio Serum HCG, Qual Negative Urine Color Urine Appearance Urine pH Ur Specific [place] Urine Protein Urine Glucose (UA) Urine Ketones Urine Blood Urine Nitrate Urine Bilirubin Urine Urobilinogen Ur Leukocyte Esterase Urine RBC Urine WBC Urine Bacteria 06/11/19 06/11/19 16:40 16:40 WBC 16.6 H RBC 4.62 Hgb 14.0 Hct 41.5 MCV 89.8 MCH 30.4 MCHC 33.9 RDW 12.6 Plt Count 362 MPV 7.7 Neut % (Auto) 68.5 Lymph % (Auto) 24.5 Long % (Auto) 4.4 Eos % (Auto) 2.3 Baso % (Auto) 0.3 Neut # (Auto) 11.4 H Lymph # (Auto) 4.1 Long # (Auto) 0.7 Eos # (Auto) 0.4 Baso # (Auto) 0.1 Total Counted 100 Neutrophils % (Manual) 71 Lymphocytes % (Manual) 25 Monocytes % (Manual) 3 Eosinophils % (Manual) 1 Platelet Estimate Normal RBC Morphology Normal Sodium 135 L Potassium 3.5 Chloride 100 Carbon Dioxide 24 Anion Gap 14.5 BUN 7 Creatinine 0.84 Estimated Creat Clear 167 Estimated GFR 82 Est GFR ( Amer) 99 Glucose 341 H POC Glucose Hemoglobin A1c Lactate Calcium 9.5 Phosphorus 3.9 Magnesium 1.3 L Total Bilirubin 0.2 AST 18 ALT 29 Alkaline Phosphatase 106 Total Protein 7.9 Albumin 3.5 Globulin 4.4 H Albumin/Globulin Ratio 0.8 L Serum HCG, Qual Urine Color Urine Appearance Urine pH Ur Specific [place] Urine Protein Urine Glucose (UA) Urine Ketones Urine Blood Urine Nitrate Urine Bilirubin Urine Urobilinogen Ur Leukocyte Esterase Urine RBC Urine WBC Urine Bacteria DS: Diagnosis - Discharge Diagnosis (1) Hyperglycemia Status: Chronic (2) Nausea & vomiting Status: Chronic (3) SIRS (systemic inflammatory response syndrome) Status: Resolved (4) Leukocytosis Status: Resolved (5) Uncontrolled insulin dependent diabetes mellitus Status: Chronic (6) Schizoaffective disorder Status: Chronic Discharge Plan - Patient Discharge Instructions ACTIVITY: Continue current activity DIET: advance to your usual diet Patient Instructions: DI for Hyperglycemia -- Adult, DI for Nausea -- Adult, DI for Leukocytosis, DI for Schizoaffective Disorder - Follow up Plan Follow up with: Roel Valentin MD [Staff Physician] - Avelino Pitts MD [Staff Physician] - 1 week Disposition: Home, Self-Group Home Medications: Home Medications Medication Instructions Recorded Confirmed Type Ondansetron [Zofran 4mg ODT] 4 mg PO Q8H PRN #20 tab.rapdis 01/20/18 06/11/19 Rx aripiprazole ER 400 mg 400 mg IM MONTHLY 30 Days #1 02/02/18 06/11/19 History intramuscular suspension,extended release divalproex 125 mg capsule,delayed 500 mg PO BID 30 Days #240 cap 12/07/18 06/11/19 History release sprinkle Insulin Degludec [Tresiba 64 units SQ HS 06/11/19 06/11/19 History Flextouch U-100] Insulin Lispro [Humalog Kwikpen 10 unit SQ TID 30 Days #3 06/12/19 Rx U-100] insuln.pen Pantoprazole Sodium [Protonix 40mg 40 mg PO DAILY 30 Days #30 06/12/19 Rx tablet] tablet. Quetiapine Fumarate 50 mg PO BID 30 Days #120 tab 06/12/19 Rx Prescriptions/Medication Reconciliation: New Insulin Lispro [Humalog Kwikpen U-100] 10 unit SQ TID 30 Days #3 insuln.pen Pantoprazole Sodium [Protonix 40mg tablet] 40 mg PO DAILY 30 Days #30 tablet.dr Continued aripiprazole ER 400 mg intramuscular suspension,extended release 400 mg IM MONTHLY 30 Days #1 divalproex 125 mg capsule,delayed release sprinkle 500 mg PO BID 30 Days #240 cap Ondansetron [Zofran 4mg ODT] 4 mg PO Q8H PRN #20 tab.rapdis PRN Reason: Nausea Insulin Degludec [Tresiba Flextouch U-100] 64 units SQ HS Changed Quetiapine Fumarate 50 mg PO BID 30 Days #120 tab Discontinued escitalopram 10 mg tablet 20 mg PO DAILY 30 Days #30 tab - Problem Reconciliation Problems Reviewed?: Yes
--- NOTE | 2019-06-12 07:49 | Pharmacy Consult Notes ---
[facility] Pharmacy VTE Monitoring - Patient Demographics Admission date: 06/11/19 Report Date: 06/12/19 Time: 07:49 Allergies/Adverse Reactions: Patient Allergies No Known Allergies Allergy (Verified 06/11/19 16:24) Height: 1.78 m Weight: 106.1 kg Patient Problems: Current Active Problems Hyperglycemia (Acute) SIRS (systemic inflammatory response syndrome) (Acute) Leukocytosis (Acute) Uncontrolled insulin dependent diabetes mellitus (Acute) Schizoaffective disorder (Acute) - VTE Risk Labs: VTE Related Lab Results Hgb 12.6 g/dL (12.2-16.2) 06/12/19 05:30 Hct 38.1 % (37.0-47.0) 06/12/19 05:30 Plt Count 308 K/mm3 (142-424) 06/12/19 05:30 BUN 3 mg/dL (7-18) L D 06/12/19 05:30 Creatinine 0.63 mg/dL (0.55-1.02) D 06/12/19 05:30 Estimated Creat Clear 227 mL/min (50-200) 06/12/19 05:30 Was VTE Risk Assessment Performed: Yes VTE Score: 1 VTE Risk Level: Very Low Risk - Prophylaxis VTE Prophylaxis Ordered?: Yes Types of VTE Prophylaxis: TEDS Knee High Location of Applied Device: Bilateral Lower Extremeties - VTE Diagnosis Confirmed Treatment or plan recommended: Continue Current Treatment
== END 2019-06-12 12:51 | disposition home or self-care (01) ==
LOC: 2ND
PROVIDERS: ADMIT Internal Medicine Adolescent Medicine; ATTEND Internal Medicine Adolescent Medicine
CPT/HCPCS: 74000; 74018; 80048; 80053; 81001; 82962; 83036; 83605; 83735; 84100; 84703; 85007; 85025; 87040; 87086; G0378; J2405

== ENCOUNTER → 2020-02-07 09:36 | Outpatient (CLI) | payer OTHER, SELFPAY ==
[2020-02-07 13:33] LABS: Basophils # 0.1 K/mm3 (0-0.2); Basophils % 1.3 % (0.1-2.0); Eosinophils # 0.3 K/mm3 (0.0-0.4); Eosinophils % 2.3 % (0.1-12.0); Hematocrit 38.1 % (37.0-47.0); Lymphocytes # 3.3 K/mm3 (0.7-4.5); Lymphocytes % 29.7 % (10-50); Mean Corpuscular HGB Conc 34.1 g/dL (31.8-35.4); Mean Corpuscular Hemoglobin 31.7 pg (27.0-31.2); Mean Platelet Volume 8.2 fl (7.4-10.4); Monocytes # 0.5 K/mm3 (0.1-1.0); Monocytes % 4.1 % (1.7-9.3); Neutrophils # 6.9 K/mm3 (1.8-7.8); Neutrophils % 62.5 % (37.0-80.0); Platelet Count 300 K/mm3 (142-424); Red Cell Distribution Width 12.9 % (11.5-17.5); White Blood Count 11.1 K/mm3 (4.8-10.8)
[2020-02-07 13:42] LABS: Alanine Aminotransferase 19 U/L (12-78); Albumin Level 3.6 g/dl (3.5-5.0); Alkaline Phosphatase 71 U/L (38-126); Anion Gap 14.5 mEq/L (5-15); Aspartate Amino Transferase 33 U/L (14-36); Bilirubin,Total 0.2 mg/dl (0.2-1.3); Blood Urea Nitrogen 8 mg/dl (7-17); Calcium 9.6 mg/dl (8.4-10.2); Carbon Dioxide 25 mmol/L (22.0-30.0); Chloride 100 mmol/L (98-107); Estimated Glomerular Filt Rate 148 ml/min (>60); GFR (African American) 179 ML/MIN (>60); Globulin 3.5 g/dL (1.3-3.2); Glucose 184 mg/dl (74-100); Potassium 4.5 mmoL/L (3.5-5.1); Sodium 135 mmol/L (136-145); Total Protein,Serum 7.1 g/dl (6.3-8.2)
== END ==
PROVIDERS: Visit Provider Nurse Practitioner Family
DX: E11.65 Type 2 diabetes mellitus with hyperglycemia (principal); Z79.4 Long term (current) use of insulin; R30.0 Dysuria
CPT/HCPCS: 36415; 80053; 85025; 87086; 87088; 87186

== ENCOUNTER 2020-09-29 23:09 | Emergency (ER) | payer OTHER, SELFPAY ==
[2020-09-29 23:25] VITALS: BMI 38.0
--- NOTE | 2020-09-29 23:29 | CT_ITS ---
PROCEDURE: CT ABDOMEN PELVIS W CON CLINICAL INDICATION: Left abd pain Left-sided abdominal pain with nausea vomiting and diarrhea COMPARISON: CT CT ABDOMEN PELVIS W CON from 12/19/2019 TECHNIQUE: IV Contrast: 75ML Isovue 370 Oral Contrast None Axial images obtained with sagittal and coronal reformats. All CT scans at the facility use one or more dose reduction, viz: automated exposure control, ma/kV adjustment per patient size (including targeted exams where dose is matched to indication, i.e. head), or iterative reconstruction technique. FINDINGS: LOWER THORAX: No acute finding ABDOMEN & PELVIS: Fatty liver with mild hepatomegaly and borderline splenomegaly.. Prior cholecystectomy. Adrenal glands, pancreas, the and kidneys have an unremarkable appearance. No intestinal obstruction or free air. No evidence appendicitis. There are few scattered small mesenteric lymph nodes. No evidence of diverticulitis. Small right ovarian cyst once again noted at 2.5 cm. No acute bony findings. IMPRESSION: No acute finding. Fatty liver with mild hepatosplenomegaly Dictated by: Maikol Saeed MD 09/30/2020 04:59 Maikol Saeed MD in [place] 09/30/2020 04:59
[2020-09-29 23:31] VITALS: BP 160/81; PULSE 106; RESP 18; TEMP 36.9; O2SAT 99; BMI 22.4
[2020-09-29 23:35] LABS: Microscopic, Urine URINE MICROSCOPIC (MICROSCOPIC)
[2020-09-29 23:38] LABS: Appearance,Urine CLEAR (Clear); Bilirubin,Urine Negative (Negative); Blood, Urine Negative (Negative); Color,Urine YELLOW (Yellow); Glucose,Urine (UA) 3+ (Negative); Ketones,Urine Negative (Negative); Leukocyte Esterase,Urine Negative (Negative); Nitrate,Urine Negative (Negative); Protein,Urine Negative (Negative); Specific Gravity, Urine 1.025 (1.005-1.030); Urobilinogen,Urine 0.2 EU/dl (0.2)
[2020-09-29 23:40] LABS: Urine Pregnancy, HCG Qual. Negative (Negative)
[2020-09-29 23:41] LABS: Basophils # 0.1 K/mm3 (0-0.2); Basophils % 0.6 % (0.1-2.0); Eosinophils # 0.1 K/mm3 (0.0-0.4); Eosinophils % 0.9 % (0.1-12.0); Hematocrit 43.3 % (37.0-47.0); Hemoglobin 14.8 g/dL (12.2-16.2); Lymphocytes % 25.5 % (10-50); Mean Corpuscular HGB Conc 34.2 g/dL (31.8-35.4); Mean Corpuscular Hemoglobin 30.4 pg (27.0-31.2); Mean Platelet Volume 8.3 fl (7.4-10.4); Monocytes # 0.6 K/mm3 (0.1-1.0); Neutrophils # 10.7 K/mm3 (1.8-7.8); Platelet Count 337 K/mm3 (142-424); Red Blood Count 4.86 M/mm3 (4.20-5.40); Red Cell Distribution Width 13.3 % (11.5-17.5); White Blood Count 15.6 K/mm3 (4.8-10.8)
[2020-09-29 23:43] LABS: Chloride 99 mmol/L (98-107); Potassium 3.8 mmoL/L (3.5-5.1); Sodium 135 mmol/L (136-145)
[2020-09-29 23:45] LABS: Amylase 57 U/L (30-110); MANUAL DIFFERENTIAL MANUAL DIFFERENTIAL (MANUAL DIFF)
[2020-09-29 23:46] LABS: Alanine Aminotransferase 61 U/L (12-78); Albumin Level 4.6 g/dl (3.5-5.0); Albumin/Globulin Ratio 1.2 (1.1-1.8); Alkaline Phosphatase 104 U/L (38-126); Anion Gap 13.8 mEq/L (5-15); Aspartate Amino Transferase 53 U/L (14-36); Bilirubin,Total 0.4 mg/dl (0.2-1.3); Blood Urea Nitrogen 8 mg/dl (7-17); Calcium 10.2 mg/dl (8.4-10.2); Carbon Dioxide 26 mmol/L (22.0-30.0); Creatinine Clearance Estimated 243 mL/min (50-200); Estimated Glomerular Filt Rate 119 ml/min (>60); GFR (African American) 144 ML/MIN (>60); Glucose 309 mg/dl (74-100); Lipase 138 U/L (23-300); Total Protein,Serum 8.6 g/dl (6.3-8.2)
[2020-09-29 23:46] LABS: Bacteria,Urine 1+ /lpf
[2020-09-29 23:52] LABS: C-Reactive Protein 22.4 mg/L (0-4)
[2020-09-30 00:13] LABS: Eosinophils % 2 % (0-3); Lymphocytes % 26 % (10-50); Neutrophils % 72 % (42-76); Platelet Estimate Normal; RBC Morphology Normal; Total Cells Counted 100
[2020-09-30 00:16] LABS: Procalcitonin 0.066 ng/mL (0.0-2.0)
--- NOTE | 2020-09-30 00:51 | [facility].EDNVD ---
ED Disposition Clinical Impression: Uncontrolled insulin dependent diabetes mellitus, SIRS (systemic inflammatory response syndrome) Abdominal pain Qualifiers: Abdominal location: left lower quadrant Qualified Code(s): R10.32 - Left lower quadrant pain Disposition: Home, Self-Care Condition on Discharge: Good Instructions: DI for Acute Abdomen Additional Instructions: call pcp for follow up Referrals: Hill Negrete MD [Primary Care Provider] - - Critical Care Critical Care Time: No Attestation: On 09/29/20, the high probability of a clinically significant, sudden or life threatening deterioration of the following system(s) required my full and direct attention, intervention and personal management. The time I documented below is in addition to time spent performing reported procedures but includes the following listed in this critical care notation. Medical Decision Making - Medical Records Medical records reviewed: Yes: I reviewed the patient's medical records. - Uri Inquiry Pt receiving controlled substance: No Vital Signs: 09/29/20 23:31 Temperature 98.4 F Temperature Source Oral Pulse Rate [Right] 106 H Respiratory Rate 18 Blood Pressure [Right Arm] 160/81 H Blood Pressure Mean [Right Arm] 107 Blood Pressure Source [Right Arm] Automatic Cuff Blood Pressure Position [Right Arm] Sitting 02 Sat by Pulse Oximetry 99 Oxygen Delivery Method Room Air - Lab Data Lab results reviewed: Yes: I reviewed the patient's lab results. Lab Results 09/29/20 23:20: Urine Color Yellow, Urine Appearance Clear, Urine pH 6.0, Ur Specific [place] 1.025, Urine Protein Negative, Urine Glucose (UA) 3+, Urine Ketones Negative, Urine Blood Negative, Urine Nitrate Negative, Urine Bilirubin Negative, Urine Urobilinogen 0.2, Ur Leukocyte Esterase Negative, Urine RBC 3-5, Urine WBC 3-5, Ur Squamous Epith Cells 10-20, Urine Bacteria 1+ 09/29/20 23:20: Urine HCG, Qual Negative 09/29/20 23:26: WBC 15.6 H, RBC 4.86, Hgb 14.8, Hct 43.3, MCV 89.0, MCH 30.4, MCHC 34.2, RDW 13.3, Plt Count 337, MPV 8.3, Neut % (Auto) 69.0, Lymph % (Auto) 25.5, [place] % (Auto) 4.0, Eos % (Auto) 0.9, Baso % (Auto) 0.6, Neut # (Auto) 10.7 H, Lymph # (Auto) 4.0, [place] # (Auto) 0.6, Eos # (Auto) 0.1, Baso # (Auto) 0.1, Total Counted 100, Neutrophils % (Manual) 72, Lymphocytes % (Manual) 26, Eosinophils % (Manual) 2, Platelet Estimate Normal, RBC Morphology Normal 09/29/20 23:26: Sodium 135 L, Potassium 3.8, Chloride 99, Carbon Dioxide 26, Anion Gap 13.8, BUN 8, Creatinine 0.60, Estimated Creat Clear 243, Estimated GFR 119, Est GFR ( Amer) 144, Glucose 309 H, Calcium 10.2, Total Bilirubin 0.4, AST 53 H, ALT 61, Alkaline Phosphatase 104, C-Reactive Protein 22.4 H, Total Protein 8.6 H, Albumin 4.6, Globulin 4.0 H, Albumin/Globulin Ratio 1.2, Amylase 57, Lipase 138, Procalcitonin 0.066 Result diagrams: 09/29/20 23:26 09/29/20 23:26 Orders (Tests/Meds): ED MEDICATIONS Generic Name Dose Route Start Last Admin Trade Name Freq PRN Reason Stop Dose Admin Sodium Chloride 1,000 mls @ 999 mls/hr 09/29/20 23:30 09/30/20 00:22 Sod Chlor 0.9% 1000ml Bag IV 09/30/20 00:30 999 mls/hr .[id number] ROMINA Administration Discontinued Medications Generic Name Dose Route Start Last Admin Trade Name Freq PRN Reason Stop Dose Admin Famotidine 20 mg 09/30/20 00:39 09/30/20 00:41 Famotidine 20mg/2ml Vial IV 09/30/20 00:40 20 mg ONCE ONE Administration Insulin Human Regular 5 unit 09/30/20 00:07 09/30/20 00:37 Insulin Human Regular 100 Units/Ml 10ml Vial IVP 09/30/20 00:08 5 unit ONCE ONE Administration Iopamidol 75 ml 09/30/20 00:14 09/30/20 00:15 Iopamidol-370 (76%);100ml Bottle IV 09/30/20 00:15 75 ml ONCE ONE Administration Ketorolac Tromethamine 30 mg 09/29/20 23:29 09/30/20 00:22 Ketorolac 30mg/Ml Vial IV 09/29/20 23:30 30 mg ONCE ONE Administration Metoclopramide HCl 10 mg 09/30/20 00:39 09/30/20 00
[2020-09-30 01:01] VITALS: BP 149/78; PULSE 89; RESP 16; TEMP 36.6; O2SAT 100
[2020-09-30 01:33] LABS: Erythrocyte Sedimentation Rate 30 mm/hr (0-20)
== END 2020-09-30 01:04 | disposition home or self-care (01) ==
PROVIDERS: Emergency Provider Emergency Medicine; PCP Internal Medicine Adolescent Medicine
DX: E11.65 Type 2 diabetes mellitus with hyperglycemia (principal); R65.10 Systemic inflammatory response syndrome (SIRS) of non-infectious origin without acute organ dysfunction; Z79.4 Long term (current) use of insulin; Z87.891 Personal history of nicotine dependence
CPT/HCPCS: 74177; 80053; 81001; 81025; 82150; 83690; 84145; 85007; 85025; 85651; 86140; 96365; 96375; 99283; J2405; Q9967

== ENCOUNTER → 2021-01-30 11:12 | Outpatient (CLI) | payer OTHER, SELFPAY ==
[2021-01-30 11:21] LABS: Adenovirus,PCR Not Detected (NotDetected); Bordetella Pertussis Not Detected (NotDetected); Chlamydophila Pneumoniae, PCR Not Detected (NotDetected); Coronavirus 19, PCR Not Detected (NotDetected); Coronavirus 229E Not Detected (NotDetected); Coronavirus NL63 Not Detected (NotDetected); Coronavirus OC43 Not Detected (NotDetected); Coronovirus HKU1,PCR Not Detected (NotDetected); Human Metapneumovirus Not Detected (NotDetected); Influenza A, PCR Not Detected (NotDetected); Influenza AH1, 2009 Not Detected (NotDetected); Influenza AH1, PCR Not Detected (NotDetected); Influenza AH3,PCR Not Detected (NotDetected); Influenza B, PCR Not Detected (NotDetected); Mycoplasma Pneumoniae, PCR Not Detected (NotDetected); Parainfluenza 1, PCR Not Detected (NotDetected); Parainfluenza 2, PCR Not Detected (NotDetected); Parainfluenza 3, PCR Not Detected (NotDetected); Parainfluenza 4, PCR Not Detected (NotDetected); Respiratory Syncytial Virus Not Detected (NotDetected); Rhinovirus/Enterovirus Not Detected (NotDetected)
== END ==
PROVIDERS: Visit Provider Nurse Practitioner Family
DX: Z11.52 Encounter for screening for COVID-19 (principal); R50.9 Fever, unspecified
CPT/HCPCS: 87581; 87633; 87798